=== PATIENT | male | born 1935 | race Caucasian/White ===

== ENCOUNTER 2016-08-27 08:37 | Outpatient (CLI) | payer MEDICARE, BC, OTHER ==
[~2016-08-27] VITALS: Ht 170.2 cm; Wt 72.7 kg
--- NOTE | ~2016-08-27 | HEMODYNAMI ---
PATIENT:CARMELO PÉREZ MEDICAL RECORD: [id number] : 37 [id number] ADMISSION DATE: 08/27/16 Generatedon:08/27/201613:29 Patient name: CARMELO PÉREZ Patient #: [id number] SSN: : Date of study: 08/27/2016 Page: Of Hemodynamic Procedure Report Patient Data Patient Demographics Procedure consent was obtained First Name: CARMELO Gender: Male Last Name: BETO : 1935 Patient #: [id number] Age: 80 year(s) Race: Unknown Additional ID: [id number] Contact details Address: [address] [place] [address] [address] State: [place] City: [place] Zip code: [address] Past Medical History Allergies: No known allergies Admission Admission Data Admission Date: 08/27/2016 Admission Time: 8:37 Height (in.): 67 BSA: 1.84 (m2) Height (cm.): 170.18 BMI: 25.06 (kg/m2) Weight (lbs.): 160 Weight (kg.): 72.57 Procedure Procedure Types Cath Procedure Peripheral Cath Diagnostic Procedure Cath Peripheral Kyphoplasty Kyphoplasty Lumbar Procedure Description Procedure Date Procedure Date: 08/27/2016 Procedure Start Time: 11:42 Procedure Staff Name Function Carmelo Staton MD Performing Physician Erwin Almaguer RT Scrub Jennifer Batse RN Nurse Minerva Torres RT Aeronautical Project Engineer Minerva Torres RT Monitor Misty Arias MD Additional personnel Procedure Data Cath Procedure Fluoroscopy Diagnostic fluoroscopy Total fluoroscopy Time: time: 14.8 min 14.8 min Diagnostic fluoroscopy Total fluoroscopy dose: dose: 777.65 mGy 777.65 mGy Procedure Medications Medication Administration Route Dosage Ancef (1Gm/50ml NS) I.V.P.B 1 g Hemodynamics Rest BSA: 1.84 (m2) O2 Consumption: Estimated: 229.72 (ml/min) O2 Consumption indexed : Estimated:124.85 (ml/min/m) Heart Rate: 98 (bpm) Snapshots Pre Cath Intra NCS Post Cath Vital Signs Time Heart Resp SPO2 NIBP (mmHg) Rhythm Pain Sedation Rate (ipm) (%) Status Level (bpm) 11:27:53 86 24 100 150/81(121) NSR 0 (11) 10(A) , No pain 11:32:07 86 19 100 135/91(114) NSR 0 (11) 10(A) , No pain 11:36:18 96 10 99 131/83(112) NSR 0 (11) 10(A) , No pain 11:40:32 82 17 98 126/76(106) NSR 0 (11) 10(A) , No pain 11:44:42 91 15 98 121/84(109) NSR 0 (11) 10(A) , No pain 11:48:52 86 15 97 121/82(108) NSR 0 (11) 10(A) , No pain 11:53:00 88 17 98 111/85(101) NSR 0 (11) 10(A) , No pain 11:57:10 92 17 98 119/78(98) NSR 0 (11) 10(A) , No pain 12:01:21 92 15 98 106/74(91) NSR 0 (11) 10(A) , No pain 12:05:25 85 15 98 109/80(93) NSR 0 (11) 10(A) , No pain 12:09:31 87 16 98 104/75(95) NSR 0 (11) 10(A) , No pain 12:13:35 79 16 98 110/75(82) NSR 0 (11) 10(A) , No pain 12:17:43 87 16 97 104/71(83) NSR 0 (11) 10(A) , No pain 12:21:47 82 16 97 108/73(79) NSR 0 (11) 10(A) , No pain 12:25:54 81 16 97 103/69(90) NSR 0 (11) 10(A) , No pain 12:29:58 84 22 97 97/72(89) NSR 0 (11) 10(A) , No pain 12:34:04 85 19 96 105/63(91) NSR 0 (11) 10(A) , No pain 12:38:12 82 22 96 114/69(90) NSR 0 (11) 10(A) , No pain 12:42:22 82 22 94 117/70(95) NSR 0 (11) 10(A) , No pain 12:46:30 95 58 86 110/81(96) NSR 0 (11) 10(A) , No pain 12:51:18 104 21 84 119/81(103) NSR 0 (11) 10(A) , No pain 12:55:28 89 21 92 123/74(89) NSR 0 (11) 10(A) , No pain 12:59:38 89 17 95 116/71(91) NSR 0 (11) 10(A) , No pain 13:03:48 92 16 95 108/68(86) NSR 0 (11) 10(A) , No pain 13:07:54 102 15 95 111/76(93) NSR 0 (11) 10(A) , No pain 13:12:00 88 15 95 110/77(104) NSR 0 (11) 10(A) , No pain 13:16:58 82 14 96 Measuring NSR 0 (11) 10(A) , No pain 13:17:09 76 12 96 108/76(81) NSR 0 (11) 10(A) , No pain 13:21:25 96 17 98 114/56(65) NSR 0 (11) 10(A) , No pain 13:25:35 93 16 106/65(88) NSR 0 (11) 10(A) , No pain Medications Time Medication Route Dose Verified Delivered Reason Notes Effectiv eness by by 11:28:13 Ancef I.V.P.B 1 g Jennifer Jennifer Per (1Gm/50ml Jana Jana physician NS) RN electric brain wave equipment mechanic Log Time Note 10:40:08 Patient Height : 67 inches 10:40:12 Patient Weight : 160 lbs 10:41:02 Time tracking: Regular hours 10:41:13 Use device set IR Diagnostic 10:41:15 Sterile Angiographic Pack opened to sterile field. 10:41:16 Bag Decanter opened to sterile field. 10:44:59 - 10:45:13 Patient received from Outpatients to IR Alert and oriented. Tansferred to table in Prone position. 10:45:15 Correct patient and procedure confirmed by team. 10:45:17 Signed procedure consent form obtained from patient. 10:45:23 H&P Date Dictated: 08/27/2016 Within 30 days and on chart.. 10:45:25 Pre-procedure instructions explained to patient. 10:45:26 Pre-op teaching completed and patient verbalized understanding. 10:45:28 Family in waiting room. 10:45:33 Patient NPO since Midnight. 10:45:48 Patient allergic to No known allergies 10:45:55 Is patient on blood thinner?No 10:46:01 - 10:51:51 IV patent on arrival in right hand with 0.9% NaCl at [facility]. 10:53:17 ----Pre-sedation anethsthesia assessment.---- 10:53:21 Previous problem with sedation/anesthesia? No ? 10:53:24 Snore? No 10:53:26 Sleep apnea? No 10:53:29 Deviated septum? No 10:53:30 Opens mouth fully? Yes 10:53:33 Sticks out tongue? Yes 10:53:39 Airway obstruction? Yes a fib 10:53:44 Dentures? No ? 10:53:47 - 10:54:31 see anesthesia notes for monitoring of patient during procedure 10:54:35 - 10:54:36 - 11:05:29 Delectable 15/2 CDS SYSTEM opened to sterile field. 11:05:35 Treehouse PROCUREMENT ANALYST KIT opened to sterile field. 11:05:44 Treehouse BONE BX DEVICE SZ2 opened to sterile field. 11:05:52 - 11:05:59 - 11::41 ECG and BP/O2 sat monitors applied to patient. ::42 Vital chart was started ::44 Baseline sample Acquired. 11::45 Full Disclosure recording started 11::47 - 11:28:13 Ancef (1Gm/50ml NS) 1 g I.V.P.B was given by Jennifer Jana RN; Per physician; 11:37:09 Physician arrived 11:39:14 --------ALL STOP TIME OUT------ 11:39:15 Final Timeout: patient, procedure, and site verified with staff and physician. All members of the team are in agreement. 11:39:28 Physical assessment completed. ASA score P 4 - A patient with severe systemic disease that is a constant threat to life as per MISTY ARIAS MD. 11:41:37 Sedation plan: TIVA Propofol 11:41:55 Procedure started. 11:42:08 Local anesthetic to Lumbar area with Lidocaine 1% by Carmelo Staton MD.INITIAL ACCESS ONLY 11:43:11 Jamshidi needle introduced. 12:20:52 Bone bx needle placed. 12:52:12 Kyphoplasty balloon introduced. 13:08:42 Cement introduced to vertebral body. 13:13:00 Jamshidi needle removed. 13:15:32 Procedure ended.(Physican Out) 13:15:38 Fluoroscopy time 14.80 minutes. 13:15:47 Fluoroscopy dose: 777.65 mGy 13:15:47 Flurop Dose total: 777.65 13:17:13 Sharps counted by scrub and verified by R.N. 13:17:56 Procedure and supply charges have been captured, reviewed, submitted an d are correct. 13:29:03 Vital chart was stopped Device Usage Item Name Manufacture Quantity Catalog Hospital Part Current [facility] l Lot# / Number Charge Number Stock Stock Serial# Code Sterile Cardinal 1 [id number] 5 Angiographic Health Pack Bag Decanter Microtek 1 [id number] 5 [employer] KY[employer]ON ANGELIQUE Medtronic 1 [id number] 5 EXPRESS 15/2 CDS SYSTEM Kyphon Medtronic 1 [id number] 5 [id number] PROCUREMENT ANALYST KIT Kyphon BONE Medtronic 1 [id number] 5 BX DEVICE SZ2 Signature Audit [place] [facility] Time Signature Unsigned Intra-Procedure 08/27/2016 Minerva Torres 1:28:58 PM RT(R) Signatures Monitor : Minerva Torres RT Signature : Date : Time : [id number] [place] [address]
[2016-08-27] MEDS ORDERED: BAYER CHEWABLE81 MG PO (09:12)
[2016-08-27] MEDS ORDERED: UROXATRAL10 MG PO (09:12)
[2016-08-27] MEDS ORDERED: CALCIUM 600 +1 EAC3 PO (09:13)
[2016-08-27] MEDS ORDERED: CO Q-10100 MG PO (09:14)
[2016-08-27] MEDS ORDERED: LANOXIN125 MCG PO (09:15)
[2016-08-27] MEDS ORDERED: FISH OIL 1,0001 CA1 PO (09:15)
[2016-08-27] MEDS ORDERED: COLESTID1 GM PO (09:15)
[2016-08-27] MEDS ORDERED: LEVITRA20 MG PO (09:17)
[2016-08-27 09:18] LABS: EOSINOPHILS 6.8 % (0-7); HEMOGLOBIN 12.7 g/dL (13.5-17.5); IMMATURE GRANULOCYTES 1.2 % (0-5); LYMPHOCYTES 25.1 % (15-50); MCH 34.1 pg (26.0-34.0); MCHC 34.3 g/dL (31.0-37.0); MCV 99.5 fL (80.0-100.0); MEAN PLATELET VOLUME 9.8 fL (7.4-10.4); MONOCYTES 17.1 % (2-11); NEUTROPHILS 48.8 % (40-80); PLATELET COUNT 119 10x3/uL (130-400); RBC 3.72 10x6/uL (4.20-6.10); RDW 13.5 % (11.5-14.5); WBC 6.7 10x3/uL (4.8-10.8)
[2016-08-27] MEDS ORDERED: METOPROLOL TART25 MG PO (09:18)
[2016-08-27] MEDS ORDERED: PRESERVISION AR1 CAP PO (09:19)
[2016-08-27] MEDS ORDERED: PRADAXA150 MG PO (09:19)
[2016-08-27] MEDS ORDERED: VITAMIN D31000 UNIT PO (09:20)
[2016-08-27] MEDS ORDERED: DETROL2 MG PO (09:20)
[2016-08-27] MEDS ORDERED: GLUCOSAMINE HC500 MG PO (09:21)
[2016-08-27] MEDS ORDERED: ZANAFLEX4 MG PO (09:22)
[2016-08-27] MEDS ORDERED: MOBIC7.5 MG PO (09:22)
[2016-08-27] MEDS ORDERED: MIRALAX17 GM PO (09:23)
[2016-08-27 09:28] LABS: INR 1.08 (0.85-1.17); PROTIME 13.9 SECONDS (11.6-15.0)
[2016-08-27 09:29] LABS: APTT 25.6 SECONDS (22.8-39.4)
[2016-08-27 09:33] LABS: CALC OSMOLALITY 275 mosm/kg (275-300); CALCIUM 8.6 mg/dL (8.5-10.1); CARBON DIOXIDE 27.2 mmol/L (21.0-32.0); CHLORIDE - SERUM 103 mmol/L (98-107); CREATININE - SERUM 0.9 mg/dL (0.6-1.3); GLUCOSE 92 mg/dL (74-106); POTASSIUM - SERUM 3.9 mmol/L (3.5-5.1); SODIUM 137 mmol/L (136-145); UREA NITROGEN 19 mg/dL (7-18); eGFR NON AFRICAN AMERICAN 86 mL/min (90-120)
[2016-08-27 09:34] VITALS: BP 134/95; Ht 170.2 cm; Wt 72.7 kg
[2016-08-27 09:45] LABS: APPEARANCE CLEAR (CLEAR); COLOR YELLOW (YELLOW)
[2016-08-27 09:46] LABS: BILIRUBIN NEGATIVE (NEGATIVE); GLUCOSE NEGATIVE (NEGATIVE); KETONE NEGATIVE (NEGATIVE); LEUKOCYTE ESTERASE NEGATIVE (NEGATIVE); NITRITE NEGATIVE (NEGATIVE); PROTEIN NEGATIVE (NEGATIVE); UROBILINOGEN NORMAL (NORMAL)
--- NOTE | 2016-08-27 13:35 | NUR ---
RECEIVED FROM IR. HOB IS FLAT, INSTRUCTED TO KEEP FLAT FOR ONE HOUR, VOICED UNDERSTANDING. AT BEDSIDE AND UNDERSTANDS WELL. JUICE GIVEN PER REQUEST.
--- NOTE | 2016-08-27 13:59 | NUR ---
C/O BACK PAIN. REQUESTS PAIN PILL. NORCO 5MG PO GIVEN, SWALLOWS WITHOUT DIFFICULTY. STATES "I DON'T USUALLY JUST STAY FLAT ON MY BACK."
--- NOTE | 2016-08-27 16:10 | NUR ---
DR COSME IN TO SEE PATIENT.
--- NOTE | 2016-08-27 16:50 | NUR ---
DISCHARGE INSTRUCTIONS GIVEN, VOICED UNDERSTANDING. DISCHARGED HOME VIA WC WITH .
== END 2016-08-27 16:50 | disposition home or self-care (01) ==
LOC: D.OPS 08:37 → D.RAD 11:00 → D.OPS 11:00
PROVIDERS: General Practice
DX: S32.018A Other fracture of first lumbar vertebra, initial encounter for closed fracture (principal); Z91.81 History of falling

== ENCOUNTER → 2016-10-07 12:49 | Outpatient (CLI) | payer MEDICARE, BC, OTHER ==
[2016-08-27 09:34] VITALS: BMI 25.1
[~2016-10-07 12:49] MED LIST: BAYER CHEWABLE81 MG PO; CALCIUM 600 +1 EAC3 PO; CO Q-10100 MG PO; COLESTID1 GM PO; DETROL2 MG PO; FISH OIL 1,0001 CA1 PO; GLUCOSAMINE HC500 MG PO; LANOXIN125 MCG PO; LEVITRA20 MG PO; METOPROLOL TART25 MG PO; MIRALAX17 GM PO; MOBIC7.5 MG PO; PRADAXA150 MG PO; PRESERVISION AR1 CAP PO; UROXATRAL10 MG PO; VITAMIN D31000 UNIT PO; ZANAFLEX4 MG PO
== END | disposition home or self-care (01) ==
LOC: D.MRI 12:49
DX: M54.5 Low back pain (principal)